=== PATIENT | female | born 1980 | race Two or more races ===

== ENCOUNTER 2024-10-06 15:54 | Emergency (ER) | payer MEDICAID, SELFPAY ==
[2024-10-06 16:12] VITALS: BP 168/79; PULSE 82; RESP 18; TEMP 37.1; O2SAT 98; BMI 42.4
--- NOTE | 2024-10-06 16:22 | XR_ITS ---
Examination: Foot, right, 3 views Technique: AP, oblique, lateral views foot, 3 views Date and time of exam: October 06, 2024 1625 hrs. Indications: Patient fell today with injury to the foot, foot pain Findings: Acute fracture distal fibular shaft without significant displacement No foot fracture noted Impression: Acute fractures distal fibular shaft without significant displacement
--- NOTE | 2024-10-06 16:22 | XR_ITS ---
EXAMINATION: Ankle, right 3 views . Technique: Ankle AP, oblique, lateral 3 views Date and time of exam: October 06, 2024 1625 hrs. Indications: Patient fell today with injury to the ankle, ankle pain. Findings: Acute fractures distal fibular shaft, no significant offset No ankle dislocation Impression: Acute fractures distal fibular shaft
--- NOTE | 2024-10-06 17:07 | XR_ITS ---
Examination: CT brain head without contrast. 2-D sagittal coronal reconstructions Date and time of exam:October 06, 2024 1721 hrs. Indications: Facial numbness today CTDI: vol (mGy):52.9 DLP: (mGycm):1052 Technique: Multiple CT axial sections of the brain have been obtained, 5 mm slice thickness. Contrast has not been administered. 2-D sagittal, coronal reconstructions have been obtained Low dose protocols were performed. One or more of the following dose reduction techniques were used; automated exposure control, adjustment of the mA and/or KV according to patient size, use of iterative reconstruction technique. Findings: No significant ventricular enlargement. Intra-axial or extra-axial hemorrhage density is not seen. No mass effect or midline shift Basal cisterns are not remarkable. Fourth ventricle is midline. Cranial vault intact. Impression: Negative for acute hemorrhage, mass effect or midline shift As clinically warranted, brain MRI follow-up would best assess for demyelinating disease
--- NOTE | 2024-10-06 17:07 | EDRME_ITS ---
Rapid Medical Screening Exam [facility] Arrival date/time: 10/06/24 15:54 43-year-old female with no known medical history presents to the emergency room with a chief complaint of 10 out of 10 headaches, dizziness. Patient states she also had a ground-level fall this morning and is now having right ankle pain and tenderness. I have greeted and performed a focused initial assessment of this patient. A comprehensive ED assessment and evaluation of the patient, analysis of all test results, and completion of the medical decision making process will be conducted by additional ED providers. Chief Complaint: Fall Time Seen by Provider: 10/06/24 16:22 Vital signs: Vital Signs Temperature 98.7 F 10/06/24 16:12 Pulse Rate 82 10/06/24 16:12 Respiratory Rate 18 10/06/24 16:12 Blood Pressure 168/79 H 10/06/24 16:12 Pulse Oximetry (%) 98 10/06/24 16:12 Oxygen Delivery Method Room Air 10/06/24 16:12 Vital signs reviewed by provider: Yes
--- NOTE | 2024-10-06 20:07 | EDNOTE_ITS ---
ED Fall Injury RME/HPI General Chief Complaint: Fall Stated Complaint: FELL AND HER RIGHT ANKEL SNAPPED Time Seen by Provider: 10/06/24 16:22 Source: patient Arrival date/time: 10/06/24 15:54 . 43-year-old female with no known medical history presents to the emergency room with a chief complaint of 10 out of 10 right ankle pain. patient states she also had a ground-level fall this morning and is now having right ankle pain and tenderness. She reports she was attempting to get out of her own vehicle when she accidentally stepped on her son's the pickup causing her to fall inverting her right ankle and hitting posterior head. Patient did not attempt any interventions or take any OTC medications prior to ED visit. Patient denies any other associated symptoms or aggravating factors. No modifying factors, no radiation, no migration. RME / HPI RME / HPI Narrative: 10/06/24 15:54 43-year-old female with no known medical history presents to the emergency room with a chief complaint of 10 out of 10 headaches, dizziness. Patient states she also had a ground-level fall this morning and is now having right ankle pain and tenderness. I have greeted and performed a focused initial assessment of this patient. A comprehensive ED assessment and evaluation of the patient, analysis of all test results, and completion of the medical decision making process will be conducted by additional ED providers. Related Data Home Medications ?Medication ?Instructions ?Recorded ?Confirmed Levonorgestrel-Eth Estra* 1 tab PO 1 PO DAILY ##0 11/08 01/15 (Alesse-28*) venlafaxine 75 mg capsule,extended 75 mg PO 1 PO DAILY ##0 11/24/07 release 24 hr (Effexor XR) Allergies Allergy/AdvReac Type Severity Reaction Status Date / Time NKA Allergy Unknown Uncoded 10/06/24 15:59 No Known Allergies Allergy Unknown Uncoded 10/06/24 15:59 Review of Systems Review of Systems Systems Reviewed: All systems reviewed, normal except as documented Narrative Review of Systems: Gen: No fever, no chills, no weight loss EYES: No discharge, no visual changes, no pain HEENT: No ear pain, no congestion, no sore throat PULM: No shortness of breath, no cough, no congestion CV: No chest pain, no dyspnea on exertion, no palpitations GI: No nausea, no vomiting, no diarrhea, no pain, no constipation : No frequency, no urgency, no dysuria Musc/skel:+ Ankle pain, no back pain Skin: No rash Psyc: No hallucinations, no depression Heme/Lymph: No easy bleeding or bruising tendencies Neuro: No weakness,+ headache ED Exam Narrative Physical exam: General: Sittiing in Exam table in no acute distress, answering questions appropriately HENT: normocephalic, atraumatic, EOMI, PERRLA, moist mucous membranes Chest: chest wall is nontender Cardiac: regular rate and rhythm, normal S1 and S2, no murmurs, rubs, or gallops, capillary refill ?2 seconds Pulmonary: clear to auscultation bilaterally, no wheezing, crackles, or rhonchi Abdominal: active bowel sounds, soft, nontender, nondistended Neuro: A&OX3, CN II-XII intact, sensation grossly intact bilaterally in UE and LE. Skin: no rashes, no ecchymosis Ext:+ Right ankle malleolus swelling ecchymosis. CMS intact Course Quality Measures none Orders Category Date Time Status Crutches .NOW Care 10/06/24 20:09 Completed Splint / Immobilizer STAT Care 10/06/24 19:[address] head/brain wo con Stat Exams 10/06/24 17:07 Completed XR ankle comp RT min 3V Stat Exams 10/06/24 16:22 Completed XR foot comp RT min 3V Stat Exams 10/06/24 16:22 Completed HYDROcodone*/APAP 5/325 [[place] 5/325] Med 10/06/24 20:09 Discontinued 1 tab PO X1 ONE Ibuprofen Tab [Motrin Tab] Med 10/06/24 20:09 Discontinued 800 mg PO X1 ONE Vital Signs Vital signs: Vital Signs Temperature 98.7 F 10/06/24 16:12 Pulse Rate 82 10/06/24 16:12 Respiratory Rate 18 10/06/24 16:12 Blood Pressure 168/79 H 10/06/24 16:12 Pulse Oximetry (%) 98 10/06/24 16:12 Oxygen Delivery Method Room Air 10/06/24 16:12 Fall MDM Narrative MDM Narrative:: There is no clinical indication for compartment syndrome at this time, patient has positive pedal and popliteal pulses. Patient's right calf/leg is not swo llen, neg pain or taut. There is mild swelling to right ankle, 2 the area of the fracture. The patient is not presenting with pain out of proportion at this time. Patient will be safely discharged home with the use of crutches and a short posterior splint temporary. Strictly advised not to bear weight on that limb. Advised to keep her appointment with her PCP and orthopedic referral will be initiated. Strictly advised to return if there is any worsening symptoms or change in condition. Patient data External records reviewed:: [facility] previous records Clinical information provided by:: patient Social determinants that could affect healthcare access:: none Patient has the following chronic illnesses:: No How is presenting disease/condition affected by chronic disease/condition?: no chronic disease Evaluation data The following diagnostics were reviewed and interpreted by me:: radiology exam(s) Lab and/or radiology exams considered but not ordered:: No Interpretation Summary: EXAMINATION: Ankle, right 3 views . Technique: Ankle AP, oblique, lateral 3 views Date and time of exam: October 06, 2024 1625 hrs. Indications: Patient fell today with injury to the ankle, ankle pain. Findings: Acute fractures distal fibular shaft, no significant offset No ankle dislocation Impression: Acute fractures distal fibular shaft Medications / Prescriptions Medications or Prescriptions considered but not ordered:: No Medication administrations:: Medication Administration History Discontinued Medications Hydrocodone Bitart/Acetaminophen (Hydrocodone/Apap 5/325 Tablet) 1 tab PO X1 ONE Stop: 10/06/24 20:10 Last Admin: 10/06/24 20:26 Dose: 1 tab Documented By: FRANCISCO Ibuprofen (Ibuprofen Tab 400 Mg Tablet) 800 mg PO X1 ONE Stop: 10/06/24 20:10 Last Admin: 10/06/24 20:25 Dose: 800 mg Documented By: FRANCISCO All medications administered and effective Consultations Consultation(s) initiated? (list below): No Diagnosis Fall Differential Diagnosis: syncope and other (Foot fracture, ankle fracture, head contusion,) Most likely diagnosis given after review of the tests above:: Right ankle fracture, head contusion Admission Indicated Admission indicated?: not indicated Admission Request Was there a request for admission?: No Disposition Plan Disposition Plan: Discharge Discharge Attestation Discharge Attestation: The patient and all family members were given an opportunity to ask questions and understood the discharge instructions. Discharge instructions specifically effects, indications for sooner follow up or return to the emergency department, and the expected course of current diagnosis. Patient condition: Stable Discharge Plan Plan Patient Disposition: HOME (Self Care) Patient condition on transfer: Stable Prescriptions/Referrals Prescriptions/Med Rec: No Action venlafaxine [Effexor XR] 75 MG capsule,extended release 24hr 75 mg PO 1 PO DAILY Qty: 0 Levonorgestrel-Eth Estra* (Alesse-28*) 1 TAB tablet 1 tab PO 1 PO DAILY Qty: 0 Referrals: Darby Silvestre NP [Primary Care Provider] - In 1 week Problem List Clinical Impression: Ankle fracture, right Patient/Caregiver Discharge Instructions Discharge Activity: activity as tolerated Education Materials: ED Ankle Fracture Additional Instructions: Is very important that you make an appointment with your primary doctor. You will need an orthopedic referral. Please use crutches as directed. Do not bear weight on that limb. Do not remove the splint unless it is super painful and you will need to return to the emergency department for further evaluation. Print Language: Chadian Stand Alone Forms: Alexandra Award Info., Patient Portal Info Letter PA/AERIAL SPRAYER Supervising Physician PA/AERIAL SPRAYER Supervising Physician: Dr. Alexander
[2024-10-06] MEDS: IBUPROFEN TAB 400 MG TABLET 800 MG PO (20:25)
[2024-10-06] MEDS: HYDROcodone/APAP 5/325 TABLET 1 TAB PO (20:26)
== END 2024-10-06 20:36 | disposition home or self-care (01) ==
PROVIDERS: Emergency Provider Emergency Medicine; PCP Nurse Practitioner Family
DX: S82.831A Other fracture of upper and lower end of right fibula, initial encounter for closed fracture (principal); W18.30XA Fall on same level, unspecified, initial encounter
CPT/HCPCS: 29515; 70450; 73610; 73630; 99283; A9270